=== PATIENT | female | born 1960 | race Caucasian/White ===

== ENCOUNTER → 2017-04-28 | Outpatient (CLI) | payer OTHER ==
--- NOTE | 2017-04-28 18:29 | Diagnostic Imaging Report ---
PROCEDURE:L-SPINE COMPLETE COMPARISON:None. INDICATIONS:SUDDEN LOWER BACK PAIN FINDINGS: There are 5 lumbar-type vertebral bodies. The vertebral bodies are well-aligned without evidence of spondylolisthesis. There are no acute, displaced fractures, lytic or blastic lesions. The vertebral body heights are well-maintained. Bilateral oblique views show no spondylolysis. The sacroiliac joints are unremarkable. Nonobstructive bowel gas pattern with moderate amount of retained stool. CONCLUSION: No acute abnormalities. Alberto Zapata M.D. Dictated by: Alberto Zapata M.D. on 04/28/2017 at 18:37 Electronically approved by: Alberto Zapata M.D. on 04/28/2017 at 18:37
--- NOTE | 2017-04-28 18:30 | Diagnostic Imaging Report ---
PROCEDURE:SACRUM X-RAY INDICATION:Low back pain. COMPARISON:None. FINDINGS: Normal mineralization. No acute, displaced fracture or dislocation. Sacral arches are preserved. No lytic or blastic lesion. Sacroiliac joints are unremarkable. Nonobstructive bowel gas pattern with moderate amount retained stool. No acute bony abnormalities. CONCLUSION: No acute abnormalities. Alberto Zapata M.D. Dictated by: Alberto Zapata M.D. on 04/28/2017 at 18:38 Electronically approved by: Alberto Zapata M.D. on 04/28/2017 at 18:38
== END ==
LOC: RAD 16:24
PROVIDERS: ATTEND Internal Medicine
DX: M54.42 Lumbago with sciatica, left side (principal)
CPT/HCPCS: 72110; 72220

== ENCOUNTER → 2021-08-09 | Outpatient (CLI) | payer OTHER | LOC: RAD 14:59 | PROVIDERS: ATTEND Internal Medicine | DX: M47.812 Spondylosis without myelopathy or radiculopathy, cervical region (principal) | CPT/HCPCS: 72050 ==